=== PATIENT | male | born 1995 | race Caucasian/White ===

== ENCOUNTER → 2024-12-02 | Outpatient (CLI) | payer BC ==
[2024-12-02 23:40] LABS: HEPATITIS C VIRUS ANTIBODY Nonreactive (Nonreactiv)
== END ==
LOC: LAB 11:52
PROVIDERS: Family Medicine
DX: Z13.220 Encounter for screening for lipoid disorders (principal); Z13.1 Encounter for screening for diabetes mellitus; Z11.4 Encounter for screening for human immunodeficiency virus [HIV]; Z11.59 Encounter for screening for other viral diseases